=== PATIENT | male | born 1975 | race Caucasian/White ===

== ENCOUNTER 2018-08-31 12:08 | Emergency (ER) | payer OTHER ==
[~2018-08-31] VITALS: Ht 167.6 cm; Wt 86.2 kg
[~2018-08-31 12:08] MED LIST: ADDERALL 30 MG30 MG PO; GABAPENTIN600 M1 PO; HYDROCODONE-AP1 EAC6 PO; LISINOPRIL20 MG PO; NEXIUM40 MG PO; WELLBUTRIN XL300 MG PO; ZOLOFT50 MG PO
[2018-08-31] MEDS ORDERED: CETIRIZINE HCL10 MG PO (12:19)
[2018-08-31] MEDS ORDERED: ATORVASTATIN CA40 MG PO (12:19)
[2018-08-31] MEDS ORDERED: FLUTICASONE PRO16 GM INH (12:19)
[2018-08-31] MEDS ORDERED: ULTRAM 50MG TAB50 MG PO (13:22)
[2018-08-31] MEDS ORDERED: PREDNISONE 10 M10 MG PO (13:22)
[2018-08-31 13:46] VITALS: BP 119/74
== END 2018-08-31 13:50 | disposition home or self-care (01) ==
LOC: ER 12:08
DX: G56.21 Lesion of ulnar nerve, right upper limb (principal); Z88.5 Allergy status to narcotic agent

== ENCOUNTER 2018-09-19 13:16 | Emergency (ER) | payer OTHER ==
[~2018-09-19] VITALS: Ht 167.6 cm; Wt 88.5 kg
[~2018-09-19 13:16] MED LIST changes: +ATORVASTATIN CA40 MG PO; +CETIRIZINE HCL10 MG PO; +FLUTICASONE PRO16 GM INH; +PREDNISONE 10 M10 MG PO; +ULTRAM 50MG TAB50 MG PO
[2018-09-19 14:30] VITALS: BP 136/82
[2018-09-19] MEDS ORDERED: NORCO 5-325 TA1 EACH PO (15:03)
== END 2018-09-19 15:10 ==
LOC: ER 13:16
DX: M79.661 Pain in right lower leg (principal); Z88.5 Allergy status to narcotic agent

== ENCOUNTER 2019-05-06 15:24 | Emergency (ER) | payer OTHER ==
[~2019-05-06] VITALS: Ht 167.6 cm; Wt 88.0 kg
[~2019-05-06 15:24] MED LIST changes: +NORCO 5-325 TA1 EACH PO
[2019-05-06 16:04] LABS: ABSOLUTE NEUTROPHILS 7.2 thou/uL (1.4-8.2); BASOPHILS 0.3 % (0.0-2.0); EOSINOPHILS 0.8 % (0.0-3.0); HEMATOCRIT 39.8 % (42.0-52.0); HEMOGLOBIN 13.7 gm/dL (14.0-18.0); LYMPHOCYTES 15.6 % (24.0-44.0); MCH 30.2 pg (26.0-34.0); MCHC 34.4 g/dL (28.0-37.0); MCV 87.7 fL (80.0-100.0); PLATELET COUNT 206 thou/uL (150-400); POLYS 80.3 % (36.0-66.0); RBC 4.53 mil/uL (4.50-6.00); RDW 13.5 % (10.5-14.5)
[2019-05-06 16:06] LABS: ANION GAP 13 mmol/L (7-16); BUN 11 mg/dL (7-18); CALCIUM 9.1 mg/dL (8.5-10.1); CHLORIDE 105 mmol/L (98-107); CO2 24 mmol/L (21-32); CREATININE 0.8 mg/dL (0.7-1.3); GLUCOSE 144 mg/dL (74-106); POTASSIUM 3.3 mmol/L (3.5-5.1); SODIUM 142 mmol/L (136-145)
[2019-05-06 16:15] LABS: TROPONIN-I <0.06 ng/mL (<0.06)
[2019-05-06] MEDS ORDERED: CARAFATE 1 GM TA1 GM PO (17:38)
[2019-05-06] MEDS ORDERED: KLOR-CON 1010 MEQ PO (17:38)
[2019-05-06] MEDS ORDERED: PROTONIX40 MG PO (17:38)
[2019-05-06 18:22] VITALS: BP 148/74
--- NOTE | 2019-05-07 08:20 | EKG ---
[address] [place] [address] ELECTROCARDIOGRAM REPORT Name: TRACI SINHA Room #: [facility]ENTERMarychuy#: [id number] ������������������ Admission: 05/06/19 ������������������ Attend Phys: Discharge: 05/06/19 ������������������ Date of : 79 Report #: [id number] ����������������������������������������������������������������� [id number] THIS REPORT FOR: //name// [facility] ED Test Date: 2019-05-06 Test Time: 15:30:44 Pat Name: TRACI SINHA Department: Room: Gender: Automatic Clipper: aj : 1975 Requested By: Miguelito Rousseau Order Number: [id number] MD: Naman Kenny Measurements Intervals Dodge Rate: 82 P: 36 GA: 125 QRS: 34 QRSD: 106 T: 26 QT: 396 QTc: 463 Interpretive Statements Sinus rhythm Poor R wave progression No previous ECG available for comparison Electronically Signed On 05-07-2019 8:19:52 CDT by Naman Kenny [email or web address] ��������������������������������������������� <ELECTRONICALLY SIGNED> ���������������������������������������� By: Naman Kenny MD, [facility] ��������������������������������������������� 05/07/19 0819 1530 1530 Naman Kenny MD, FACC /EPI
== END 2019-05-06 18:10 | disposition home or self-care (01) ==
LOC: ER 15:24
PROVIDERS: Emergency Medicine
DX: R07.89 Other chest pain (principal); Z86.718 Personal history of other venous thrombosis and embolism; Z88.5 Allergy status to narcotic agent; Z87.891 Personal history of nicotine dependence; Z82.49 Family history of ischemic heart disease and other diseases of the circulatory system; Z83.42 Family history of familial hypercholesterolemia

== ENCOUNTER 2019-06-22 20:27 | Emergency (ER) | payer OTHER ==
[~2019-06-22] VITALS: Ht 167.6 cm; Wt 90.7 kg
[~2019-06-22 20:27] MED LIST changes: +CARAFATE 1 GM TA1 GM PO; +KLOR-CON 1010 MEQ PO; +PROTONIX40 MG PO
[2019-06-22] MEDS ORDERED: ACTICIN 5% CREA60 G1 TOP (21:48)
[2019-06-22 22:21] VITALS: BP 137/85
== END 2019-06-22 22:22 | disposition home or self-care (01) ==
LOC: ER 20:27
DX: S80.862A Insect bite (nonvenomous), left lower leg, initial encounter (principal); S80.861A Insect bite (nonvenomous), right lower leg, initial encounter; I10 Essential (primary) hypertension; F10.10 Alcohol abuse, uncomplicated; Z79.899 Other long term (current) drug therapy; Z88.6 Allergy status to analgesic agent; W57.XXXA Bitten or stung by nonvenomous insect and other nonvenomous arthropods, initial encounter; Y93.89 Activity, other specified; Y92.89 Other specified places as the place of occurrence of the external cause; Y99.8 Other external cause status